=== PATIENT | female | born 1970 | race Caucasian/White ===

== ENCOUNTER 2017-02-19 17:53 | Emergency (ER) | payer OTHER ==
[~2017-02-19] VITALS: Ht 165.1 cm; Wt 59.5 kg
[~2017-02-19 17:53] MED LIST: ANTIBIOTIC; LASIX 20MG TABL20 MG; LASIX 20MG TABL20 MG PO; LORTAB 5/500 501 TAB PO; PERCR 7.5 PO; PREMARIN 0.60.625 M1 PO; TOPROL XL 25MG25 MG PO; VITAMIN B125000 MCG PO; VITAMINC1000TA PO; ZOFRAN 4MG T4 MG/TAB PO; [UNRECOGNIZED DRUG - OTHER]
[2017-02-19 17:59] VITALS: TEMP 97.5
[2017-02-19 18:27] LABS: BASO # 0.1 (0.0-0.2); BASO % 0.7 % (0.0-2.0); EOS # 0.1 (0.0-0.7); EOS % 1.6 % (0-4.0); GRAN # 4.6 (1.4-6.5); GRAN % 61.2 % (42.2-75.2); HEMATOCRIT 44.1 % (37.0-47.0); HEMOGLOBIN 15.6 g/dl (12.5-16.0); LYMPH # 2.2 (1.2-3.4); LYMPH % 28.6 % (20.0-51.0); MEAN CELL VOLUME 89 fl (80.0-100.0); MEAN CORPUSCULAR HEMOGLOBIN 32 pg (27.0-31.0); MEAN CORPUSCULAR HGB CONC 35 g/dl (33.0-37.0); MEAN PLATELET VOLUME 10.9 fl (7.4-10.4); MONO # 0.6 (0.1-0.6); MONO % 7.8 % (1.7-9.3); PLATELET COUNT 212 K/mm3 (130-400); RED BLOOD COUNT 4.95 M/mm3 (4.10-5.30); REDCELL DISTRIBUTION WIDTH-CV 11.7 % (11.5-14.5); WHITE BLOOD COUNT 7.6 K/mm3 (4.8-10.8)
[2017-02-19] MEDS ORDERED: PRIL40 PO (18:39)
[2017-02-19] MEDS ORDERED: MULTI VITAMINS1 TAB PO (18:39)
[2017-02-19 18:40] LABS: ADJUSTED CALCIUM 9.4 mg/dL (8.4-10.2); ALBUMIN 4.8 gm/dL (3.5-5.0); BILIRUBIN,TOTAL 0.5 mg/dL (0.0-1.0); C-REACTIVE PROTEIN 1.2 mg/dL (0.0-0.9); CREATININE, serum 0.84 mg/dL (0.52-1.25); POTASSIUM 4.1 mmol/L (3.4-5.0); TOTAL PROTEIN 7.9 gm/dL (6.4-8.2)
[2017-02-19 18:46] LABS: PH 6 (5-8); SQUAMOUS EPITHELIAL 0-2 /hpf; URINE APPEARANCE Clear; URINE BACTERIA Rare /hpf; URINE BILIRUBIN Negative (NEGATIVE); URINE BLOOD Negative (NEGATIVE); URINE COLOR Yellow; URINE GLUCOSE Negative (NEGATIVE); URINE KETONE Negative (NEGATIVE); URINE RBC 0-2 /hpf; URINE UROBILINOGEN Negative (NEGATIVE)
[2017-02-19 19:11] VITALS: BP 138/103; PULSE 72
== END 2017-02-19 19:11 | disposition home or self-care (01) ==
LOC: COL.ER 17:53
PROVIDERS: Emergency Medicine
DX: K21.9 Gastro-esophageal reflux disease without esophagitis (principal); N39.0 Urinary tract infection, site not specified; R49.0 Dysphonia; R13.10 Dysphagia, unspecified; R10.816 Epigastric abdominal tenderness; I10 Essential (primary) hypertension; F17.200 Nicotine dependence, unspecified, uncomplicated

== ENCOUNTER → 2017-04-02 | Outpatient (CLI) | payer OTHER ==
[~2017-04-02] MED LIST changes: +MULTI VITAMINS1 TAB PO; +PRIL40 PO
== END ==
LOC: COL.RAD 10:54
DX: K21.0 Gastro-esophageal reflux disease with esophagitis (principal); R68.89 Other general symptoms and signs; R49.0 Dysphonia

== ENCOUNTER 2017-04-30 05:10 | Day surgery (SDC) | payer OTHER ==
[2017-04-30] VITALS (11 sets, daily range): BP systolic 112–136; BP diastolic 70–90; PULSE 54–81; TEMP 97.2–98.9
[~2017-04-30] VITALS: Ht 165.1 cm; Wt 58.9 kg
[2017-04-30] MEDS ORDERED: LINZESS290CAP PO (05:42)
[2017-04-30] MEDS ORDERED: RESTORIL30 MG PO (05:43)
[2017-04-30] MEDS ORDERED: FLONASEALLERGY NS (05:44)
[2017-04-30] MEDS ORDERED: ZYRTEC-D 5 MG-11 TER PO (05:44)
[2017-04-30] MEDS ORDERED: CARAFATE 1GM1 G PO (05:44)
[2017-04-30] MEDS ORDERED: ZANTAC 150MG T150 MG PO (05:44)
[2017-05-01 02:40] VITALS: BP 120/75; PULSE 54; TEMP 98.1
[2017-05-01 05:21] VITALS: BP 140/89; PULSE 54; TEMP 97.9
[2017-05-01 10:11] VITALS: BP 128/82; PULSE 56; TEMP 98.5
[2017-05-01 13:33] VITALS: BP 136/90; PULSE 55; TEMP 98.2
[2017-05-01 18:21] VITALS: BP 119/60; PULSE 100; TEMP 98.3
== END 2017-05-01 19:30 | disposition home or self-care (01) ==
LOC: SDCO 05:10 → SURG 10:35 → SDCO 12:00
DX: K21.9 Gastro-esophageal reflux disease without esophagitis (principal); Z90.710 Acquired absence of both cervix and uterus; I10 Essential (primary) hypertension; K58.9 Irritable bowel syndrome, unspecified; Z87.442 Personal history of urinary calculi; F17.210 Nicotine dependence, cigarettes, uncomplicated; M19.90 Unspecified osteoarthritis, unspecified site
CPT/HCPCS: OP; A9284; C1713; J0690; J1100; J1885; J2175; J2270; J2405; J2704; J2710; J3010; J7120

== ENCOUNTER 2017-11-24 11:56 | Emergency (ER) | payer OTHER ==
[~2017-11-24] VITALS: Ht 165.1 cm; Wt 55.8 kg
[~2017-11-24 11:56] MED LIST changes: +CARAFATE 1GM1 G PO; +FLONASEALLERGY NS; +LINZESS290CAP PO; +RESTORIL30 MG PO; +ZANTAC 150MG T150 MG PO; +ZYRTEC-D 5 MG-11 TER PO
[2017-11-24 11:59] VITALS: TEMP 97.5
[2017-11-24] MEDS ORDERED: MULTI VITAMINS1 TAB PO (12:10)
[2017-11-24 12:52] LABS: BASO # 0.1 (0.0-0.2); BASO % 0.8 % (0.0-2.0); EOS # 0.2 (0.0-0.7); EOS % 2.4 % (0-4.0); GRAN # 3.3 (1.4-6.5); GRAN % 53.4 % (42.2-75.2); HEMATOCRIT 40.5 % (37.0-47.0); HEMOGLOBIN 14.1 g/dl (12.5-16.0); LYMPH # 2.2 (1.2-3.4); LYMPH % 35.6 % (20.0-51.0); MEAN CELL VOLUME 90 fl (80.0-100.0); MEAN CORPUSCULAR HEMOGLOBIN 31 pg (27.0-31.0); MEAN CORPUSCULAR HGB CONC 35 g/dl (33.0-37.0); MEAN PLATELET VOLUME 11.3 fl (7.4-10.4); MONO # 0.5 (0.1-0.6); MONO % 7.6 % (1.7-9.3); PLATELET COUNT 200 K/mm3 (130-400); RED BLOOD COUNT 4.49 M/mm3 (4.10-5.30); REDCELL DISTRIBUTION WIDTH-CV 12.1 % (11.5-14.5)
[2017-11-24 13:00] LABS: CALCIUM 9.5 mg/dL (8.4-10.2); CREATININE, serum 0.73 mg/dL (0.52-1.25); POTASSIUM 3.7 mmol/L (3.4-5.0)
[2017-11-24] MEDS ORDERED: ZOFRAN 4MG T4 MG/TAB PO (13:42)
[2017-11-24 14:09] VITALS: BP 145/104; PULSE 57
== END 2017-11-24 15:28 | disposition home or self-care (01) ==
LOC: COL.ER 11:56
PROVIDERS: Emergency Medicine
DX: R42 Dizziness and giddiness (principal); R19.7 Diarrhea, unspecified; Z86.79 Personal history of other diseases of the circulatory system; Z87.891 Personal history of nicotine dependence; Z90.710 Acquired absence of both cervix and uterus; Z98.890 Other specified postprocedural states; Z79.51 Long term (current) use of inhaled steroids
CPT/HCPCS: J2405; J7030

== ENCOUNTER 2018-03-13 05:18 | Emergency (ER) | payer OTHER ==
[~2018-03-13] VITALS: Ht 165.1 cm; Wt 55.5 kg
[2018-03-13 05:24] VITALS: TEMP 97.9
[2018-03-13 06:04] LABS: COLLECTION METHOD CLEAN CATCH
[2018-03-13 06:07] LABS: BASO # 0.1 (0.0-0.2); BASO % 0.9 % (0.0-2.0); EOS # 0.2 (0.0-0.7); EOS % 4.3 % (0-4.0); GRAN # 2.3 (1.4-6.5); HEMATOCRIT 40.6 % (37.0-47.0); HEMOGLOBIN 14.2 g/dl (12.5-16.0); LYMPH # 2.2 (1.2-3.4); MEAN CELL VOLUME 89 fl (80.0-100.0); MEAN CORPUSCULAR HEMOGLOBIN 31 pg (27.0-31.0); MEAN CORPUSCULAR HGB CONC 35 g/dl (33.0-37.0); MEAN PLATELET VOLUME 10.5 fl (7.4-10.4); MONO # 0.6 (0.1-0.6); MONO % 10.6 % (1.7-9.3); PLATELET COUNT 222 K/mm3 (130-400); RED BLOOD COUNT 4.56 M/mm3 (4.10-5.30); REDCELL DISTRIBUTION WIDTH-CV 11.7 % (11.5-14.5)
[2018-03-13 06:16] LABS: AMORPHOUS CRYSTAL Present /uL; MUCOUS Present /lpf; PH 7 (5-8); URINE APPEARANCE Cloudy; URINE BACTERIA Rare /hpf; URINE BILIRUBIN Negative (NEGATIVE); URINE BLOOD Negative (NEGATIVE); URINE CALCIUM OXALATE CRYSTAL Present /hpf; URINE COLOR Yellow; URINE GLUCOSE Negative (NEGATIVE); URINE KETONE Negative (NEGATIVE); URINE LEUKOCYTE ESTERASE 2+ (NEGATIVE); URINE NITRATE Negative (NEGATIVE); URINE PROTEIN(semi-quant) Negative (NEGATIVE); URINE UROBILINOGEN Negative (NEGATIVE)
[2018-03-13 06:17] LABS: ALBUMIN 3.9 gm/dL (3.5-5.0); BILIRUBIN,TOTAL 0.5 mg/dL (0.0-1.0); CALCIUM 9.1 mg/dL (8.4-10.2); CREATININE, serum 0.83 mg/dL (0.52-1.25); POTASSIUM 4.1 mmol/L (3.4-5.0)
[2018-03-13] MEDS ORDERED: MACROBID 1100 MG/CAP PO (07:51)
[2018-03-13 08:33] VITALS: BP 128/97; PULSE 67
== END 2018-03-13 08:34 | disposition home or self-care (01) ==
LOC: COL.ER 05:18
PROVIDERS: Emergency Medicine
DX: K59.00 Constipation, unspecified (principal); Z87.442 Personal history of urinary calculi; Z90.49 Acquired absence of other specified parts of digestive tract; Z90.710 Acquired absence of both cervix and uterus; Z98.890 Other specified postprocedural states; Z87.891 Personal history of nicotine dependence; Z79.51 Long term (current) use of inhaled steroids
CPT/HCPCS: J1170; J2405; J7030; Q9967

== ENCOUNTER 2021-02-16 07:32 | Emergency (ER) | payer BC ==
[~2021-02-16] VITALS: Ht 165.1 cm; Wt 57.3 kg
[~2021-02-16 07:32] MED LIST changes: +MACROBID 1100 MG/CAP PO
[2021-02-16 08:22] LABS: COLLECTION METHOD CLEAN CATCH
[2021-02-16 08:30] LABS: MUCOUS Present /lpf; PH 5 (5-8); SQUAMOUS EPITHELIAL 0-2 /hpf; URINE APPEARANCE Clear; URINE BACTERIA None Seen /hpf; URINE BILIRUBIN Negative (NEGATIVE); URINE BLOOD Negative (NEGATIVE); URINE COLOR Yellow; URINE GLUCOSE Negative (NEGATIVE); URINE KETONE Negative (NEGATIVE); URINE LEUKOCYTE ESTERASE Negative (NEGATIVE); URINE NITRATE Negative (NEGATIVE); URINE PROTEIN(semi-quant) Negative (NEGATIVE); URINE RBC 0-2 /hpf; URINE UROBILINOGEN Negative (NEGATIVE)
[2021-02-16] MEDS ORDERED: MOTRIN 800800 MG/TAB PO (09:12)
[2021-02-16 09:32] VITALS: BP 114/87; PULSE 91; TEMP 98.3
== END 2021-02-16 09:32 | disposition home or self-care (01) ==
LOC: COL.ER 07:32
PROVIDERS: Personal Emergency Response Attendant
DX: U07.1 COVID-19 (principal); I10 Essential (primary) hypertension; Z79.899 Other long term (current) drug therapy

== ENCOUNTER 2021-10-04 05:47 | Day surgery (SDC) | payer BC ==
[~2021-10-04] VITALS: Ht 165.1 cm; Wt 62.3 kg
[~2021-10-04 05:47] MED LIST changes: +MOTRIN 800800 MG/TAB PO
[2021-10-04] MEDS ORDERED: TOPROL XL 25MG25 MG PO (06:38)
[2021-10-04] MEDS ORDERED: ADDERALL30 MG PO (06:39)
[2021-10-04] MEDS ORDERED: ESTRACE 1MG1 MG/TAB PO (06:40)
[2021-10-04] MEDS ORDERED: MULTI VITAMINS1 TAB PO (06:41)
[2021-10-04] MEDS ORDERED: NORCO 325 MG-51 TAB PO (07:00)
[2021-10-04] MEDS ORDERED: STOOL SOFTENER100 M2 PO (07:00)
[2021-10-04 07:11] VITALS: BP 112/77; PULSE 64; TEMP 97.8
[2021-10-04 09:10] VITALS: BP 117/74; PULSE 74; TEMP 97.4
--- NOTE | 2021-10-04 09:10 | NUR ---
PT TO BAY 8 PER CART FROM PACU. RECEIVED REPORT FROM NEWTON GROSS. VS OBTAINED. REORIENTED TO ROOM AND CALL LIGHT. CALL LIGHT WITHIN REACH. WILL CONTINUE TO MONITOR PT.
[2021-10-04 09:25] VITALS: BP 115/80; PULSE 80
--- NOTE | 2021-10-04 09:25 | NUR ---
PT RESTING COMFORTABLY. TOLERATING ICE CHIPS. DENIES ANY NEEDS AT THIS TIME. WILL CONTINUE TO MONITOR PT.
[2021-10-04 09:40] VITALS: BP 105/90; PULSE 79
--- NOTE | 2021-10-04 09:40 | NUR ---
PT TOLERATING JELLO, TOAST, AND ORANGE JUICE. PT DENIES ANY OTHER NEEDS AT THIS TIME. WILL CONTINUE TO MONITOR PT.
[2021-10-04 09:55] VITALS: BP 108/64; PULSE 70
--- NOTE | 2021-10-04 09:55 | NUR ---
PT CONTINUES TO DO WELL. STATES READY FOR DISCHARGE.
--- NOTE | 2021-10-04 10:05 | NUR ---
IV DC'D. PT TOLERATED WELL. PT TO BATHROOM VOIDED WITHOUT DIFFICULTY.
--- NOTE | 2021-10-04 10:25 | NUR ---
DISCHARGE EDUCATION COMPLETED WITH PT AND HER MOTHER. THEY VERBALIZED UNDERSTANDING OF HOME AND FOLLOW UP CARE. ALL QUESTIONS ANSWERED. DISCHARGE PAPERWORK GIVEN TO PT.
--- NOTE | 2021-10-04 11:00 | NUR ---
PT OFF UNIT PER WHEELCHAIR. PT DISCHARGE TO HOME WITH MOTHER AND FRIEND PER PERSONAL VEHICLE.
== END 2021-10-04 11:00 | disposition home or self-care (01) ==
LOC: SDCO 05:47
DX: T83.712A Erosion of implanted urethral mesh to surrounding organ or tissue, initial encounter (principal); R10.9 Unspecified abdominal pain; Z87.891 Personal history of nicotine dependence; Z85.42 Personal history of malignant neoplasm of other parts of uterus; Z87.442 Personal history of urinary calculi
CPT/HCPCS: C1769; C2617; J1100; J1170; J1885; J2405; J2704; J3010; J7120; Q9967

== ENCOUNTER 2021-10-04 20:03 | Emergency (ER) | payer BC ==
[~2021-10-04] VITALS: Ht 165.1 cm; Wt 61.8 kg
[~2021-10-04 20:03] MED LIST changes: +ADDERALL30 MG PO; +ESTRACE 1MG1 MG/TAB PO; +NORCO 325 MG-51 TAB PO; +STOOL SOFTENER100 M2 PO
[2021-10-04 20:11] VITALS: TEMP 97.1
[2021-10-04 20:47] LABS: HEMOGLOBIN 12.1 g/dl (12.5-16.0); MEAN CELL VOLUME 96 fl (80.0-100.0); MEAN CORPUSCULAR HEMOGLOBIN 33 pg (27-31); MEAN CORPUSCULAR HGB CONC 35 g/dl (33.0-37.0); MEAN PLATELET VOLUME 10.2 fl (7.4-10.4); PLATELET COUNT 203 K/mm3 (130-400); RED BLOOD COUNT 3.64 M/mm3 (4.10-5.30); REDCELL DISTRIBUTION WIDTH-CV 12.1 % (11.5-14.5)
[2021-10-04 20:52] LABS: HEMATOCRIT 35.1 % (37.0-47.0)
[2021-10-04 21:04] LABS: ALBUMIN 3.1 gm/dL (3.5-5.0); BILIRUBIN,TOTAL 0.2 mg/dL (0.2-1.2); CALCIUM 7.2 mg/dL (8.4-10.2); CREATININE, serum 0.86 mg/dL (0.57-1.11); POTASSIUM 3.4 mmol/L (3.5-4.5); TOTAL PROTEIN 5.5 gm/dL (6.2-8.1)
[2021-10-04 21:17] LABS: BAND 8 % (0-10); LYMPHOCYTE 5 % (20.0-51.0); NEUTROPHILS 85 % (42.0-75.2)
[2021-10-04 21:18] LABS: PLATELET ESTIMATE NORMAL (NORMAL)
[2021-10-04 21:21] LABS: COLLECTION METHOD CLEAN CATCH
[2021-10-04 21:34] LABS: MUCOUS Present (NOT PRESENT); PH 6 (5-8); SQUAMOUS EPITHELIAL None Seen /hpf (0-10); URINE APPEARANCE Turbid (CLEAR/HAZY); URINE BACTERIA Occasional /hpf (NONE SEEN); URINE BILIRUBIN Negative (NEGATIVE); URINE BLOOD 3+ (NEGATIVE); URINE COLOR Red (YELLOW); URINE LEUKOCYTE ESTERASE Trace (NEGATIVE); URINE PROTEIN(semi-quant) 2+ (NEGATIVE); URINE RBC >50 /hpf (0-2); URINE UROBILINOGEN Negative (NEGATIVE)
[2021-10-04 23:06] VITALS: BP 103/68; PULSE 72
== END 2021-10-04 23:06 | disposition home or self-care (01) ==
LOC: COL.ER 20:03
PROVIDERS: Emergency Medicine
DX: R05.9 Cough, unspecified (principal)
CPT/HCPCS: J1170; J1885; J2405; J2550; Q9967

== ENCOUNTER 2022-02-25 09:10 | Emergency (ER) | payer BC ==
[~2022-02-25] VITALS: Ht 165.1 cm; Wt 60.9 kg
[2022-02-25 09:23] VITALS: TEMP 97.8
[2022-02-25 09:24] LABS: COLLECTION METHOD CLEAN CATCH
[2022-02-25 10:11] LABS: MUCOUS Present (NOT PRESENT); URINE BACTERIA Many /hpf (NONE SEEN); URINE RBC None Seen /hpf (0-2)
[2022-02-25 10:12] LABS: URINE APPEARANCE Hazy (CLEAR/HAZY); URINE COLOR Yellow (YELLOW)
[2022-02-25 10:13] LABS: URINE GLUCOSE Negative (NEGATIVE); URINE KETONE TRACE (NEGATIVE); URINE NITRATE Positive (NEGATIVE); URINE PROTEIN(semi-quant) 1+ (NEGATIVE); URINE UROBILINOGEN 0.2 E.U/dL (0.2-1.0)
[2022-02-25 10:14] LABS: URINE BLOOD TRACE-INTACT (NEGATIVE)
[2022-02-25 11:00] LABS: BASO % 0.7 % (0.0-2.0); EOS # 0.1 K/mm3 (0.0-0.7); EOS % 1.9 % (0.0-4.0); GRAN # 2.8 K/mm3 (1.4-6.5); GRAN % 65.3 % (42.2-75.2); HEMOGLOBIN 12.2 g/dl (12.5-16.0); LYMPH # 0.7 K/mm3 (1.2-3.4); LYMPH % 15.7 % (20.0-51.0); MEAN CELL VOLUME 96 fl (80.0-100.0); MEAN CORPUSCULAR HEMOGLOBIN 33 pg (27-31); MEAN CORPUSCULAR HGB CONC 35 g/dl (33.0-37.0); MONO # 0.7 K/mm3 (0.1-0.6); MONO % 16.2 % (1.7-9.3); PLATELET COUNT 158 K/mm3 (130-400); RED BLOOD COUNT 3.66 M/mm3 (4.10-5.30); REDCELL DISTRIBUTION WIDTH-CV 11.9 % (11.5-14.5)
[2022-02-25 11:02] LABS: HEMATOCRIT 35.1 % (37.0-47.0)
[2022-02-25 11:19] LABS: BILIRUBIN,TOTAL 0.2 mg/dL (0.2-1.2); CALCIUM 8.4 mg/dL (8.4-10.2); CREATININE, serum 0.72 mg/dL (0.57-1.11); POTASSIUM 3.4 mmol/L (3.5-4.5); TOTAL PROTEIN 5.5 gm/dL (6.2-8.1)
[2022-02-25] MEDS ORDERED: BACTRIM DS 8001 TAB PO (11:54)
[2022-02-25] MEDS ORDERED: ZOFRAN ODT4 MG PO (11:58)
[2022-02-25 12:25] VITALS: BP 111/76; PULSE 77
== END 2022-02-25 12:25 | disposition home or self-care (01) ==
LOC: COL.ER 09:10
PROVIDERS: Emergency Medicine
DX: N12 Tubulo-interstitial nephritis, not specified as acute or chronic (principal); N20.0 Calculus of kidney; Z87.891 Personal history of nicotine dependence; Z90.49 Acquired absence of other specified parts of digestive tract; Z20.822 Contact with and (suspected) exposure to COVID-19
CPT/HCPCS: J1885; J2270; J2405; J7120; Q9967